=== PATIENT | female | born 1975 | race Caucasian/White ===

== ENCOUNTER 2017-03-31 05:21 | Emergency (ER) | payer MEDICAID ==
--- NOTE | 2017-03-31 06:11 | NUR ---
CALLED PT IN [place], NO RESPONSE
== END 2017-03-31 06:17 | disposition left against medical advice (07) ==
LOC: ER 05:22
DX: Z53.21 Procedure and treatment not carried out due to patient leaving prior to being seen by health care provider (principal)

== ENCOUNTER 2018-03-22 22:37 | Emergency (ER) | payer MEDICAID ==
[~2018-03-22] VITALS: Ht 160 cm; Wt 77.1 kg
--- NOTE | 2018-03-22 22:45 | NUR ---
Pt BIB SELF. C/O LEFT SIDED ARM PAIN RADIATING DOWN TO LEFT LEG. FEELS NUMBNESS ON LEFT FOOT. PER Pt STATEMENT, THE LEFT SIDED PAIN & NUMBNESS STARTED RIGHT AFTER SHE GOT A THREATENING CALL ABOUT HER MOTHER, WHICH TURNED OUT TO BE NOT TRUE. VS STABLE. Pt LAYING COMFORTABLY IN BED. WAITING TO BE SEEN BY MD.
--- NOTE | 2018-03-22 22:58 | NUR ---
Pt BEING SEEN BY
[2018-03-22] MEDS ORDERED: IBUPROFEN 400 MG TABLET ONE (23:21)
--- NOTE | 2018-03-22 23:26 | NUR ---
MOTRIN 800MG GIVEN.
[2018-03-22] MEDS ORDERED: IBUPROFEN 400 MG TABLET PO ONE (23:30)
--- NOTE | 2018-03-22 23:50 | NUR ---
Patient discharged to home in stable condition. Written and verbal after care instructions given. Patient verbalizes understanding of instruction. pt instructed not to drive. family member is taking pt home. vs stable. pt left walking.
[2018-03-23 00:07] VITALS: BP 133/77
== END 2018-03-23 | disposition home or self-care (01) ==
LOC: ER 22:38
DX: F43.9 Reaction to severe stress, unspecified (principal); R79.89 Other specified abnormal findings of blood chemistry; Z88.0 Allergy status to penicillin
CPT/HCPCS: 82962-TC; A4606; Z7610